=== PATIENT | male | born 1940 | race African-American/Black ===

== ENCOUNTER 2016-11-12 17:43 | Emergency (ER) | payer OTHER ==
--- NOTE | 2016-11-12 17:53 | PDOC ---
Rapid Medical Evaluation Chief Complaint: Urinary Catheter Problem Time Seen by Provider: 11/12/16 17:52 Medical Evaluation: Allergies Allergy/AdvReac Type Severity Reaction Status Date / Time No Known Allergies Allergy Verified 11/12/16 17:46 11/12/16 17:52 I have performed a brief in-person evaluation of this patient. The patient presents with a chief complaint of: leakage of suprapubic tube connection Pertinent physical exam findings: no active leakage I have ordered the following: none The patient will proceed to fast track for further evaluation.
[2016-11-12 18:09] VITALS: BP 126/71; PULSE 95; TEMP 98.6; BMI 26.2
--- NOTE | 2016-11-12 18:21 | PDOC ---
History of Present Illness - General Chief Complaint: Urinary Catheter Problem Stated Complaint: catheter problem Time Seen by Provider: 11/12/16 17:52 History Source: Patient - History of Present Illness Timing/Duration: reports: intermittent Past History - Past Medical History Allergies/Adverse Reactions: Allergies Allergy/AdvReac Type Severity Reaction Status Date / Time No Known Allergies Allergy Verified 11/12/16 17:46 Other medical history: suprapubic cath - Psycho/Social/Smoking Cessation Hx Anxiety: No Suicidal Ideation: No Smoking History: Never smoked Have you smoked in the past 12 months: No Information on smoking cessation initiated: No Hx Alcohol Use: No Drug/Substance Use Hx: No Substance Use Type: None Review of Systems - Review of Systems Constitutional: No: Chills, Fever ABD/GI: No: Nausea, Vomiting, Abdominal cramping : No: Flank Pain, Hematuria *Physical Exam - Vital Signs Last Vital Signs Temp Pulse Resp BP Pulse Ox 98.6 F 95 H 18 126/71 100 11/12/16 17:51 11/12/16 17:51 11/12/16 17:51 11/12/16 17:51 11/12/16 17:51 - Physical Exam General Appearance: Yes: Appropriately Dressed. No: Apparent Distress HEENT: positive: Normal Voice Neck: positive: Supple Respiratory/Chest: negative: Respiratory Distress Gastrointestinal/Abdominal: positive: Soft. negative: Tender Male Genitalia: positive: other (SPT w/ leg bag in place, tape overlyin site of device connection) Integumentary: positive: Dry, Warm Neurologic: positive: Fully Oriented, Alert, Normal Mood/Affect Medical Decision Making - Medical Decision Making 11/12/16 18:25 75 yo M, poor historian, s/p SPT placement 3 weeks by urologist in [place] for urinary retention of unknown etiology per pt, states he is scheduled to have "surgery" next week Tuesday but unclear with details, here because of urine leaking from SPT connection x 3 days. Has since placed several layers of tape around site but continues to have some leakage at least once a day. Denies hematuria, abdominal pain, nausea, vomiting, fever or chills. Pt well dahiana and stable in ED. Call was placed to staff in the supply department who came down, took a picture of tube but states they unfortunately did not have part that pt needs. Pt was given a roll of surgical silk tape to place to site in the hopes that stronger, more adhesive tape would help to prevent further leakage. Pt placed tape himself in ED and satisfied upon discharge. Reasons to return d/w pt *DC/Admit/Observation/Transfer Diagnosis at time of Disposition: Suprapubic catheter dysfunction Qualifiers: Encounter type: initial encounter Qualified Code(s): T83.018A - Breakdown ( mechanical) of other indwelling urethral catheter, initial encounter - Discharge Dispostion Disposition: HOME Condition at time of disposition: Good - Patient Instructions Additional Instructions: Please follow up with with your urologist on Tuesday as already scheduled. If symptoms worsen, return to ED
== END 2016-11-12 18:46 | disposition home or self-care (01) ==
LOC: JERFT 17:43 → JER 17:43 → JERFT 18:46
DX: T83.038A Leakage of other urinary catheter, initial encounter (principal); Y84.6 Urinary catheterization as the cause of abnormal reaction of the patient, or of later complication, without mention of misadventure at the time of the procedure; Y73.3 Surgical instruments, materials and gastroenterology and urology devices (including sutures) associated with adverse incidents
CPT/HCPCS: 99281-25

== ENCOUNTER 2019-10-10 23:45 | Emergency (ER) | payer OTHER ==
[2019-10-11 00:57] VITALS: BP 134/65; PULSE 82; TEMP 98; BMI 26.4
[2019-10-11] MEDS ORDERED: AZITHROMYCIN 500 MG TABLET PO ONE (02:00)
--- NOTE | 2019-10-11 02:01 | PDOC ---
Attending Attestation - Resident Resident Name: Bridger Olvera - ED Attending Attestation I have performed the following: I have examined & evaluated the patient, The case was reviewed & discussed with the resident, I agree w/resident's findings & plan - HPI HPI: 10/11/19 02:00 see resident hpi - Physicial Exam PE: 10/11/19 02:00 agree with resident exam - Medical Decision Making 10/11/19 02:00 78-year-old male requesting treatment for potential exposure to STDs during heterosexual intercourse Patient refused rectal exam Remainder of genital exam is within normal limits aside from vitiligo Rocephin and Zithromax administered
--- NOTE | 2019-10-11 02:01 | PDOC ---
History of Present Illness - General Chief Complaint: HIV Testing Stated Complaint: STD Time Seen by Provider: 10/11/19 01:37 - History of Present Illness Initial Comments: 78M no reported PMH presenting s/p sexual intercourse with 1 female yesterday. Reports yellow discharge from the penis that started today. No bloody discharge. No rash or lesions over the penis. No dysuria. No pain over the penis or testicles. No fever/chills. No abdominal pain. No chest pain/shortness of breath. No diarrhea. Past History - Past Medical History Allergies/Adverse Reactions: Allergies Allergy/AdvReac Type Severity Reaction Status Date / Time No Known Allergies Allergy Verified 10/11/19 00:39 - Psycho Social/Smoking Cessation Hx Smoking History: Never smoked Have you smoked in the past 12 months: No Hx Alcohol Use: No Drug/Substance Use Hx: No Substance Use Type: None Review of Systems - Review of Systems Comments:: GENERAL/CONSTITUTIONAL: No fever or chills. No weakness._ HEAD, EYES, EARS, NOSE AND THROAT: No change in vision. No change in hearing. No sore throat._ CARDIOVASCULAR: No chest pain or shortness of breath_ RESPIRATORY: Denies cough, hemoptysis_ GASTROINTESTINAL: No nausea, vomiting, diarrhea or constipation._ GENITOURINARY: Reports penile yellow discharge. No dysuria, hematuria, or bloody discharge. SKIN: No rash_ NEUROLOGIC: No headache, vertigo, loss of consciousness, or change in strength/ sensation._ ALLERGIC/IMMUNOLOGIC: No hives or skin allergy._ *Physical Exam - Vital Signs Last Vital Signs Temp Pulse Resp BP Pulse Ox 98 F 82 20 134/65 100 10/10/19 23:50 10/10/19 23:50 10/10/19 23:50 10/10/19 23:50 10/10/19 23:50 - Physical Exam GENERAL: Awake, alert, and oriented to person/place/time, in no acute distress_ HEAD: No signs of trauma, normoc ephalic, atraumatic _ EYES: PERRLA, EOMI, sclera anicteric, conjunctiva clear_ ENT: Hearing grossly normal, nares patent, oropharynx clear without exudates. No uvular deviation. Moist mucosa_ NECK: Normal ROM, supple, no lymphadenopathy, JVD, or masses_ LUNGS: No distress, speaks in full sentences, clear to auscultation bilaterally _ HEART: Regular rate and rhythm, normal S1 and S2, no murmurs appreciated, peripheral pulses normal and equal bilaterally._ ABDOMEN: Soft, nontender, normoactive bowel sounds. No guarding, no rebound. No masses_ EXTREMITIES: Normal inspection, Normal range of motion, no edema. No clubbing or cyanosis_ : Normal external exam of penis and testicles. No visible discharge. No rash or lesions. No penile tenderness. No testicular tenderness bilaterally. No warmth to testicles. NEUROLOGICAL: Cranial nerves II through XII grossly intact. Normal speech, normal gait, no focal sensorimotor deficits _ SKIN: Warm, Dry, normal turgor, no rashes or lesions noted_ Medical Decision Making - Medical Decision Making 10/11/19 02:00 78M no reported PMH presenting with penile discharge x1 day. Declined HIV testing. Declined STD testing. Plan to d/c home. -rocephin 250 mg -zithromax 1g Discharge - Discharge Information Problems reviewed: Yes Clinical Impression/Diagnosis: STD exposure Condition: Stable - Admission No - Follow up/Referral Referrals: Danny Recinos MD [Staff Physician] - - Patient Discharge Instructions Patient Printed Discharge Instructions: Facts About Sexually Transmitted Infections Additional Instructions: Please use barrier protection when having sexual intercourse. Please notify any sexual partners of any STDs you are diagnosed with. If you experience any new, worsening, or concerning symptoms, please return to the emergency department. - Post Discharge Activity
[2019-10-11] MEDS ORDERED: AZITHROMYCIN 500 MG TABLET ONE (02:23)
== END 2019-10-11 02:32 | disposition home or self-care (01) ==
LOC: JER 23:45
DX: Z77.9 Other contact with and (suspected) exposures hazardous to health (principal)
CPT/HCPCS: 99281-25